=== PATIENT | female | born 1995 | race Hispanic/Latino ===

== ENCOUNTER 2024-07-14 14:11 | Emergency (ER) | payer SELFPAY ==
[~2024-07-14] VITALS: Ht 167.6 cm; Wt 78.0 kg
[2024-07-14 14:50] VITALS: PULSE 66; RESP 15; TEMP 97.8; O2SAT 100
[2024-07-14] MEDS ORDERED: METHOCARBAMOL750 MG PO (15:02)
== END 2024-07-14 15:48 | disposition home or self-care (01) ==
LOC: ER 14:15
DX: M54.2 Cervicalgia (principal); M25.511 Pain in right shoulder; M54.50 Low back pain, unspecified; M79.18 Myalgia, other site; V44.5XXA Car driver injured in collision with heavy transport vehicle or bus in traffic accident, initial encounter; Y92.488 Other paved roadways as the place of occurrence of the external cause
CPT/HCPCS: 99283